=== PATIENT | female | born 1985 | race African-American/Black ===

== ENCOUNTER 2017-11-20 19:21 | Emergency (ER) | payer MEDICAID, OTHER ==
[2017-11-20] MEDS ORDERED: ACETAMINOPHEN 325 MG TABLET PO ONE (20:08)
--- NOTE | 2017-11-20 20:12 | ER Document Report ---
HPI - HPI Pain Level: 4 Notes: Patient is a 32-year-old female who presents to the ED complaining of nasal congestion/discharge, dry nonproductive cough, fever, body ache 2-3 days. Patient states that she is still eating and drinking without difficulties, but does have a decreased p.o. intake. She is still urinating normally having normal bowel movements. Patient has been using some qgtp-[id number] meds for symptoms. She denies any significant past medical history including cardiopulmonary history and immunocompromised conditions. Patient denies any smoking or IV drug use. Patient requesting work note. Denies or sickle cell. Denies any current headache, neck pain, chest pain, palpitations, syncope, shortness of breath, wheeze, dyspnea, abdominal pain, nausea/vomiting/ diarrhea, urinary retention, dysuria, hematuria, or rash. - ROS Systems Reviewed and Negative: Yes All other systems reviewed and negative - REPRODUCTIVE LMP: 10-30-17 Reproductive: DENIES: : Past Medical History - Social History Smoking Status: Never Smoker Family History: Reviewed & Not Pertinent - Past Medical History Cardiac Medical History: Denies: Hx Coronary Artery Disease, Hx Heart Attack, Hx Hypertension Pulmonary Medical History: Denies: Hx Asthma, Hx Bronchitis, Hx COPD, Hx Pneumonia Neurological Medical History: Denies: Hx Cerebrovascular Accident, Hx Seizures Musculoskeltal Medical History: Denies Hx Arthritis Past Surgical History: Denies: Hx Pacemaker - Immunizations Hx Diphtheria, Pertussis, Tetanus Vaccination: Yes - 2009 Vertical Provider Document - CONSTITUTIONAL Agree With Documented VS: Yes Notes: PHYSICAL EXAMINATION: GENERAL: Well-appearing, well-nourished and in no acute distress. A&Ox4. Answers questions appropriately. Moves comfortably w/o notable distress HEAD: Atraumatic, normocephalic. EYES: Pupils equal round and reactive to light, extraocular movements intact, sclera anicteric, conjunctiva are normal. ENT: EAC clear b/l. TM's intact b/l without erythema, fluid, or perforation. Nares patent and with clear discharge. oropharynx no erythema without exudates. No tonsilar hypertrophy without erythema or exudate. No palatine shift. Uvula midline. No tongue protrusion. No drooling, hoarseness, or airway compromise. Moist mucous membranes. No sinus tenderness. NECK: Normal range of motion, supple without lymphadenopathy. No rigidity/ meningismus. LUNGS: Breath sounds clear to auscultation bilaterally and equal. No wheezes rales or rhonchi. No retractions HEART: Regular rate and rhythm without murmurs, rubs, gallops. ABDOMEN: Soft, nontender, nondistended abdomen. No guarding, no rebound. No masses appreciated. Normal bowel sounds present. No CVA tenderness bilaterally. No hepatosplenomegaly. NEUROLOGICAL: Normal speech, normal gait. Normal sensory, motor exams PSYCH: Normal mood, normal affect. SKIN: Warm, Dry, normal turgor, no rashes or lesions noted. - INFECTION CONTROL TRAVEL OUTSIDE OF THE [place] IN LAST 30 DAYS: No Course - Re-evaluation Re-evalutation: 11/20/17 21:30 Patient is a well-hydrated, 32-year-old female who presents to the ED with acute URI, suspect influenza. Vitals are stable (temp improved to 100.6). PE is otherwise unremarkable. No labs or imaging warranted at this time based on H &P. Patient has no significant cardiopulmonary or immunocompromised medical conditions. Patient's lungs are clear to auscultation bilaterally without tachycardia, hypoxia, or tachypnea. Patient is tolerating p.o. without any difficulties. Tylenol and toradol given today. Thoroughly reviewed the risks, benefits, potential side effects, estimated cost without insurance with patient. After thorough review, patient declined Tamiflu at this time. Low suspicion for any meningitis, sepsis, peritonsillar/pharyngeal abscess, respiratory compromise, severe dehydration, or other emergent systemic condition at this time. Patient is aware this condition can change from initial presentation and she needs to monitor symptoms closely. Conservative measures otherwise for symptoms. Recheck with your PCM in 3-5 days. Return to the ED with any worsening/concerning symptoms otherwise as reviewed in discharge. Patient is in agreement. Discharge - Discharge Clinical Impression: Acute URI, Influenza Condition: Stable Disposition: HOME, SELF-CARE Instructions: Influenza ([facility]), Upper Respiratory Illness ([facility]) Additional Instructions: Maintain adequate fluid intake Take meds as directed tylenol/ibuprofen as needed over the counter cold medication as needed for symptoms Humidified air may help Wash your hands regularly Wear a mask when coughing F/u: with your PCM in 3-5 days for a recheck Return to the ED with any fever, worsening pain, chest pain, palpitations, syncope, worsening LIU, neck pain/stiffness, shortness of breath, wheezing, drooling, trouble swallowing/breathing, abdominal pain, n/v/d, rash, or worsening/concerning symptoms otherwise. Forms: Return to Work Referrals: [facility] [Provider Group] - Follow up as needed [facility] [Provider Group] - Follow up as needed
[2017-11-20] MEDS ORDERED: KETOROLAC TROMETHAMINE INJ/PF 30 MG/1 ML SDV IM ONE (20:47)
[2017-11-20 22:12] VITALS: BP 109/75
== END 2017-11-20 22:10 | disposition home or self-care (01) ==
LOC: ER 19:21
DX: J11.1 Influenza due to unidentified influenza virus with other respiratory manifestations (principal); R09.81 Nasal congestion; R09.89 Other specified symptoms and signs involving the circulatory and respiratory systems; R05 Cough; R50.9 Fever, unspecified; M79.1 Myalgia
CPT/HCPCS: 99283; 96372; J1885

== ENCOUNTER 2019-11-02 13:33 | Emergency (ER) | payer MEDICAID, OTHER ==
[2019-11-02] MEDS ORDERED: METOCLOPRAMIDE HCL INJ/PF 10 MG/2 ML SDV IV ONE (13:53)
[2019-11-02] MEDS ORDERED: DIPHENHYDRAMINE HCL 50 MG/ML VIAL IV ONE (13:53)
[2019-11-02] MEDS ORDERED: RINGERS SOLUTION,LACTATED 1,000 ML IV ONE (13:53)
--- NOTE | 2019-11-02 13:55 | ER Document Report ---
ED Medical Screen (RME) - General Chief Complaint: Chest Pain Stated Complaint: CHEST PAIN Time Seen by Provider: 11/02/19 13:50 Mode of Arrival: Wheelchair Information source: Patient Notes: Patient presents with fever cough and weakness. Patient reports nausea and vomiting as well. Patient states she has had a cough for 3 days. Patient reports fever of 102 earlier today. Patient did take Tylenol around 1230 today. Patient complains of chest pain and upper back pain between her shoulder blades. Patient is currently 32 weeks G2, P1. I have greeted and performed a rapid initial assessment of this patient. A comprehensive ED assessment and evaluation of the patient, analysis of test results and completion of the medical decision making process will be conducted by additional ED providers. TRAVEL OUTSIDE OF THE [place] IN LAST 30 DAYS: No - Related Data Allergies/Adverse Reactions: Penicillins Adverse Reaction (Verified 11/02/19 13:49) Past Medical History - Past Medical History Cardiac Medical History: Denies: Hx Coronary Artery Disease, Hx Heart Attack, Hx Hypertension Pulmonary Medical History: Denies: Hx Asthma, Hx Bronchitis, Hx COPD, Hx Pneumonia Neurological Medical History: Denies: Hx Cerebrovascular Accident, Hx Seizures Renal/ Medical History: Denies: Hx Peritoneal Dialysis Musculoskeltal Medical History: Denies Hx Arthritis Past Surgical History: Denies: Hx Pacemaker - Immunizations Hx Diphtheria, Pertussis, Tetanus Vaccination: Yes - 2009 Physical Exam - Respiratory Respiratory status: Tachypnea - Cardiovascular Rhythm: Tachycardia Heart sounds: S1 appreciated, S2 appreciated
[2019-11-02 15:14] LABS: VENOUS BLOOD BASE EXCESS -4.8 mmol/L; VENOUS BLOOD HCO3 19.8 mmol/L (20-32); VENOUS BLOOD PCO2 34.8 mmHg (35-63); VENOUS BLOOD PH 7.37 (7.30-7.42)
[2019-11-02 15:20] LABS: HEMATOCRIT 28.8 % (36.0-47.0); HEMOGLOBIN 9.6 g/dL (12.0-15.5); MEAN CORPUSCULAR HEMOGLOBIN 24.1 pg (27.0-33.4); MEAN CORPUSCULAR HGB CONC 33.3 g/dL (32.0-36.0); MEAN CORPUSCULAR VOLUME 72 fl (80-97); PLATELET COUNT 130 10^3/uL (150-450); RED BLOOD COUNT 3.98 10^6/uL (3.72-5.28); RED CELL DISTRIBUTION WIDTH 17.4 % (11.5-14.0); WHITE BLOOD COUNT 9.3 10^3/uL (4.0-10.5)
--- NOTE | 2019-11-02 15:30 | RADIOLOGY REPORT (SQ) ---
EXAM DESCRIPTION: CHEST 2 VIEWS COMPLETED DATE/TIME: 11/02/2019 3:22 pm REASON FOR STUDY: cp, sob COMPARISON: None. EXAM PARAMETERS: NUMBER OF VIEWS: Two views. TECHNIQUE: PA and lateral views of the chest were obtained.. RADIATION DOSE: NA LIMITATIONS: none FINDINGS: LUNGS AND PLEURA: Asymmetric right lower lobe opacity. There is no pleural effusion or pn eumothorax. MEDIASTINUM AND HILAR STRUCTURES: No mediastinal or hilar contour abnormality. HEART AND VASCULAR STRUCTURES: The cardiac silhouette and pulmonary vasculature are within normal dumont its. BONES: No acute findings. HARDWARE: None in the chest. OTHER: No other finding. IMPRESSION: Right lower lobe pneumonia. TECHNICAL DOCUMENTATION: JOB ID: [id number] 2010 [employer]- All Rights Reserved Reading location - IP/workstation name: [email or web address]
[2019-11-02 15:34] LABS: A TYPE INFLUENZA AG NEGATIVE (NEGATIVE); B INFLUENZA AG NEGATIVE (NEGATIVE)
[2019-11-02 15:40] LABS: ALBUMIN 3.4 g/dL (3.5-5.0); ALKALINE PHOSPHATASE 78 U/L (38-126); ANION GAP 9 (5-19); ASPARTATE AMINO TRANSFERASE 30 U/L (14-36); BILIRUBIN,DIRECT 0.1 mg/dL (0.0-0.4); BILIRUBIN,TOTAL 0.6 mg/dL (0.2-1.3); BLOOD UREA NITROGEN 5 mg/dL (7-20); CALCIUM 8.8 mg/dL (8.4-10.2); CARBON DIOXIDE 20 mmol/L (22-30); CHLORIDE 102 mmol/L (98-107); GLUCOSE 91 mg/dL (75-110); POTASSIUM 3.6 mmol/L (3.6-5.0); TOTAL PROTEIN 6.8 g/dL (6.3-8.2)
[2019-11-02 15:56] LABS: ABSOLUTE LYMPHOCYTES# (MANUAL) 0.6 10^3/uL (0.5-4.7); ABSOLUTE MONOCYTES # (MANUAL) 0.5 10^3/uL (0.1-1.4); BAND NEUTROPHILS % (MANUAL) 2 % (3-5); BASOPHILS % (MANUAL) 0 % (0-2); EOSINOPHILS % (MANUAL) 1 % (0-6); LYMPHOCYTES % (MANUAL) 6 % (13-45); MONOCYTES % (MANUAL) 5 % (3-13); SEGMENTED NEUTROPHILS % (MAN) 86 % (42-78); TOTAL CELLS COUNTED 100
[2019-11-02] MEDS ORDERED: AZITHROMYCIN 250 MG TABLET PO ONE (15:56)
[2019-11-02 15:59] LABS: ANISOCYTOSIS 1+; PLATELET COMMENT DECREASED; PLATELET LARGE PRESENT; POLYCHROMASIA SLIGHT
[2019-11-02] MEDS ORDERED: NORMAL SALINE 1000 ML 1,000 ML IV ONE (16:18)
[2019-11-02] MEDS ORDERED: ACETAMINOPHEN 325 MG TABLET PO ONE (17:42)
--- NOTE | 2019-11-02 17:44 | ER Document Report ---
ED Cardiac - General Chief Complaint: Fever Stated Complaint: CHEST PAIN Time Seen by Provider: 11/02/19 13:50 Mode of Arrival: Wheelchair Information source: Patient TRAVEL OUTSIDE OF THE [place] IN LAST 30 DAYS: No - HPI Notes: Patient presents with cough congestion fever and chest pain. Patient also states she is had vomiting with her coughing. The cough is been productive of yellow-green sputum. She states she is currently 32 weeks . No s ignificant zenia pain. No leaking of fluid or bleeding. She has had no problems with this . She has no significant past medical history. The chest pain is a tightness sensation in the center of the chest. It is constant. It is worse with exertion or deep breath and better with rest. It does radiate across her chest. It is moderate to severe. - Related Data Allergies/Adverse Reactions: Penicillins Adverse Reaction (Verified 11/02/19 13:49) Past Medical History - General Information source: Patient - Social History Smoking Status: Never Smoker Chew tobacco use (# tins/day): No Frequency of alcohol use: None Drug Abuse: None Family History: Reviewed & Not Pertinent Patient has suicidal ideation: No Patient has homicidal ideation: No - Past Medical History Cardiac Medical History: Denies: Hx Coronary Artery Disease, Hx Heart Attack, Hx Hypertension Pulmonary Medical History: Denies: Hx Asthma, Hx Bronchitis, Hx COPD, Hx Pneumonia Neurological Medical History: Denies: Hx Cerebrovascular Accident, Hx Seizures Renal/ Medical History: Denies: Hx Peritoneal Dialysis Musculoskeletal Medical History: Denies Hx Arthritis Past Surgical History: Denies: Hx Pacemaker - Immunizations Hx Diphtheria, Pertussis, Tetanus Vaccination: Yes - 2009 Review of Systems - Review of Systems Constitutional: Chills, Fever, Malaise, Recent illness Cardiovascular: Chest pain, Palpitations Respiratory: Cough, Short of breath -: Yes All other systems reviewed and negative Physical Exam - Vital signs Vitals: Temp Pulse Resp BP Pulse Ox 100.7 F H 135 H 16 112/99 H 97 11/02/19 13:48 11/02/19 13:48 11/02/19 13:48 11/02/19 13:48 11/02/19 13:48 Interpretation: Tachycardic, Tachypneic, Febrile - General General appearance: Alert In distress: Mild - HEENT Head: Normocephalic, Atraumatic Eyes: Normal Pupils: PERRL - Respiratory Respiratory status: Respiratory distress - Mild, Tachypnea Chest status: Nontender Breath sounds: Normal Chest palpation: Normal - Cardiovascular Rhythm: Tachycardia Heart sounds: Normal auscultation Murmur: No - Abdominal Inspection: Gravid female Distension: No distension Bowel sounds: Normal Tenderness: Nontender - Back Back: Normal, Nontender - Extremities General upper extremity: Normal inspection, Nontender, Normal color, Normal ROM, Normal temperature General lower extremity: Normal inspection, Nontender, Normal color, Normal ROM, Normal temperature, Normal weight bearing. No: Guanaco's sign - Neurological Neuro grossly intact: Yes Cognition: Normal Orientation: AAOx4 [place] Coma Scale Eye Opening: Spontaneous Medicine [place] Coma Scale Verbal: Oriented Medicine [place] Coma Scale Motor: Obeys Commands [place] Coma Scale Total: 15 Speech: Normal Motor strength normal: LUE, RUE, LLE, RLE Sensory: Normal - Psychological Associated symptoms: Normal affect, Normal mood - Skin Skin Temperature: Warm Skin Moisture: Dry Skin Color: Normal Course - Re-evaluation Re-evalutation: 11/02/19 17:42 Patient presents with fever and a right lower lobe pneumonia on chest x-ray. She is tachycardic and mildly tachypneic. She has not been hypoxic. Lactate at this time is normal. She is not significantly acidotic. She does not have a significant elevated white blood cell count. I have treated her with fluids and antibiotics. She has had a stress testing done by OB which they tell me other than some tachycardia appears okay. Patient will be transferred to maternal medicine service at [facility]. At this time patient is stable. She is still maintaining her saturations. She is mildly tachypneic. Her heart rate is not significantly change despite the fluids. She will continue to be closely monitored until transfer. - Vital Signs Vital signs: Temp Pulse Resp BP Pulse Ox 100.7 F H 135 H 16 112/99 H 100 11/02/19 13:48 11/02/19 13:48 11/02/19 13:48 11/02/19 13:48 11/02/19 16:00 - Laboratory Result Diagrams: 11/02/19 14:55 11/02/19 14:55 Laboratory results interpreted by me: 11/02/19 11/02/19 11/02/19 14:55 14:55 14:55 Hgb 9.6 L Hct 28.8 L MCV 72 L MCH 24.1 L RDW 17.4 H Plt Count 130 L Seg Neuts % (Manual) 86 H Band Neutrophils % 2 L Lymphocytes % (Manual) 6 L VBG pCO2 34.8 L VBG HCO3 19.8 L Sodium 131.2 L Carbon Dioxide 20 L BUN 5 L Albumin 3.4 L - Diagnostic Test Radiology reviewed: Image reviewed, Reports reviewed - EKG Interpretation by Me EKG shows normal: Sinus rhythm Rate: Tachycardia - 139 Rhythm: NSR [place]/QRS: No: Right axis deviation, Left axis deviation Critical Care Note - Critical Care Note Total time excluding time spent on procedures (mins): 50 Comments: Approximate 50 minutes were spent managing this patient febrile pneumonia in a female. This included multiple reassessments. And included multiple discussions with family and consultants. It included reviewing imaging and laboratory. Discharge - Discharge Clinical Impression: Pneumonia Qualifiers: Pneumonia type: due to unspecified organism Laterality: right Lung location: lower lobe of lung Qualified Code(s): J18.9 - Pneumonia, unspecified organism Condition: Fair Disposition: [facility]
[2019-11-02 18:11] LABS: APPEARANCE,URINE SLIGHTLY-CLOUDY; BILIRUBIN,URINE NEGATIVE (NEGATIVE); COLOR,URINE YELLOW; GLUCOSE, URINE NEGATIVE (NEGATIVE); KETONES,URINE NEGATIVE (NEGATIVE); LEUKOCYTE ESTERASE,URINE NEGATIVE (NEGATIVE); NITRITE,URINE NEGATIVE (NEGATIVE); PROTEIN,URINE NEGATIVE (NEGATIVE); URINE SPECIFIC GRAVITY 1.006; UROBILINOGEN,URINE NEGATIVE mg/dL (<2.0)
[2019-11-02 19:27] VITALS: BP 107/57
--- NOTE | 2019-11-02 20:15 | ER Document Report ---
Doctor's Note Notes: 11/02/19 20:14 At approximate 7:55 PM I reassessed the patient. Her blood pressure was 90 for the nurse. We turned the patient onto her left side and repeated the blood pressure and it was 95 systolic. Her heart rate was 130. Her heart rate essentially was no different than when she arrived her blood pressure had dropp ed about 10 points despite 3 L of fluid. She stated she did not feel significantly different than when she arrived. Since she was not feeling worse in her pulse was not increasing I felt that the most prudent thing to do was to continue with the transfer as this was a patient that was obviously too ill to be taking care of here. I do not feel that I had significant interventions to offer her. She did not require pressors at this time. She was in no respiratory distress. It seem to me the most prudent thing was to try to get her to a tertiary center as quickly as possible and I felt that further treatment here was only going to delay the definitive care that would be the best for her.
--- NOTE | 2019-11-02 20:28 | EKG REPORT ---
SEVERITY:- OTHERWISE NORMAL ECG - SINUS TACHYCARDIA NONSPECIFIC ST-T CHANGES- DIFFUSE LEADS : Confirmed by: Randy Castro MD 02-Nov-2019 20:27:37
== END 2019-11-02 20:04 | disposition short-term general hospital (02) ==
LOC: ER 13:33
DX: O26.93 Pregnancy related conditions, unspecified, third trimester (principal); J18.9 Pneumonia, unspecified organism; R50.9 Fever, unspecified; R07.9 Chest pain, unspecified; R11.2 Nausea with vomiting, unspecified; R53.1 Weakness; Z3A.32 32 weeks gestation of pregnancy; Z88.0 Allergy status to penicillin
CPT/HCPCS: 93005; 99291; 96361; 96374; 96375; 59025; 36415; 87040; 83605; 83690; 85025; 80053; 81001; 82803; 87804; 71046; 93010; J1200; J2765; J7030; J7120

== ENCOUNTER 2020-01-06 03:41 | Inpatient (IN) | payer OTHER ==
[2020-01-06 04:14] LABS: APPEARANCE,URINE SLIGHTLY-CLOUDY; BILIRUBIN,URINE NEGATIVE (NEGATIVE); COLOR,URINE YELLOW; GLUCOSE, URINE NEGATIVE (NEGATIVE); KETONES,URINE NEGATIVE (NEGATIVE); LEUKOCYTE ESTERASE,URINE NEGATIVE (NEGATIVE); NITRITE,URINE NEGATIVE (NEGATIVE); PROTEIN,URINE NEGATIVE (NEGATIVE); URINE SPECIFIC GRAVITY 1.028; UROBILINOGEN,URINE NEGATIVE mg/dL (<2.0)
[2020-01-06] MEDS ORDERED: RINGERS SOLUTION,LACTATED 1,000 ML IV ONE (04:16)
[2020-01-06] MEDS ORDERED: RINGERS SOLUTION,LACTATED 1,000 ML IV PRN (04:16)
[2020-01-06] MEDS ORDERED: OXYTOCIN 10 UNIT/ML VIAL ONE (04:17)
[2020-01-06] MEDS ORDERED: MISOPROSTOL 0.2 MG TABLET ONE (04:17)
[2020-01-06] MEDS ORDERED: OXYTOCIN/NORMAL SALINE 20 UNIT/1,000 ML RTUINJ ONE (04:18)
[2020-01-06] MEDS ORDERED: LIDOCAINE 1% INJ-PF (10 MG/ML) 30 ML SDV ONE (04:18)
[2020-01-06] MEDS ORDERED: VANCOMYCIN HCL INJ 1000 MG VIAL ONE (04:25)
[2020-01-06] MEDS ORDERED: VANCOMYCIN HCL INJ 1000 MG VIAL IV PRN (04:33)
[2020-01-06 04:40] LABS: URINE AMPHETAMINES SCREEN NEGATIVE; URINE BARBITURATES SCREEN NEGATIVE; URINE BENZODIAZEPINES SCREEN NEGATIVE; URINE COCAINE SCREEN NEGATIVE; URINE MARIJUANA (THC) SCREEN NEGATIVE; URINE METHADONE SCREEN NEGATIVE; URINE PHENCYCLIDINE SCREEN NEGATIVE
--- NOTE | 2020-01-06 04:42 | Admission Physical ---
Datetime Report Generated by CPN: 01/06/2020 04:42 CURRENT ADMISSION Chief Complaint: Uterine Contractions Indication for Induction: Not Applicable Admit Impression : Term, Intrauterine Admit Plan: Admit to Unit; Initiate Labor Protocol ALLERGIES Medication Allergies: Penicillins (01/06/2020) Latex: No Latex Allergies OBSTETRICAL HISTORY EDC: 01/06/2020 00:00 : 3 Para: 1 SEE RECORDS Alcohol: No Marijuana : No Cocaine: No Other Illicit Drugs: No Cigarettes: Never Smoker. [id number] PHYSICAL EXAM General: Normal HEENT: Normal Neurologic: Normal Thyroid: Normal Heart: Normal Lungs: Normal Breast: Deferred Back: Normal Abdomen: Normal Genitourinary Exam: Normal Extremities: Normal DTRs: Normal Pelvic Type: Adequate FETUS A EGA: 40.0 PLANS FOR LABOR AND DELIVERY Labor and Delivery: Plan Pain Management: Epidural Feeding Preference: Breast Circumcision: Yes INFORMED CONSENT Signature: with User ID: [email or web address]
[2020-01-06 04:45] LABS: HEMATOCRIT 35.4 % (36.0-47.0); HEMOGLOBIN 11.8 g/dL (12.0-15.5); MEAN CORPUSCULAR HEMOGLOBIN 24.6 pg (27.0-33.4); MEAN CORPUSCULAR HGB CONC 33.4 g/dL (32.0-36.0); MEAN CORPUSCULAR VOLUME 74 fl (80-97); PLATELET COUNT 118 10^3/uL (150-450); RED BLOOD COUNT 4.79 10^6/uL (3.72-5.28); RED CELL DISTRIBUTION WIDTH 24.6 % (11.5-14.0)
[2020-01-06] MEDS ORDERED: VANCOMYCIN HCL 1,000 MG in DEXTROSE 5%-WATER 250 ML IV ONE (04:45)
[2020-01-06 05:19] LABS: ABSOLUTE LYMPHOCYTES# (MANUAL) 1.8 10^3/uL (0.5-4.7); ABSOLUTE MONOCYTES # (MANUAL) 0.8 10^3/uL (0.1-1.4); BASOPHILS % (MANUAL) 0 % (0-2); EOSINOPHILS % (MANUAL) 1 % (0-6); LYMPHOCYTES % (MANUAL) 16 % (13-45); MONOCYTES % (MANUAL) 7 % (3-13); SEGMENTED NEUTROPHILS % (MAN) 76 % (42-78); TOTAL CELLS COUNTED 100
[2020-01-06 05:20] LABS: HYPOCHROMASIA SLIGHT; POLYCHROMASIA SLIGHT; TOXIC GRANULATION SLIGHT
[2020-01-06 05:21] LABS: ANISOCYTOSIS 3+; OVALOCYTES SLIGHT; PLATELET COMMENT DECREASED; POIKILOCYTOSIS SLIGHT; TEAR DROP CELLS SLIGHT
[2020-01-06] MEDS ORDERED: IBUPROFEN 800 MG TABLET ONE (06:20)
--- NOTE | 2020-01-06 06:20 | Delivery Summary ---
Del Sum A-C Datetime Report Generated by CPN: 01/06/2020 06:20 DELIVERY PERSONNEL DELIVERY PERSONNEL: [id number] Delivery Doctor:: Sunday Edwards, MD Labor and Delivery Nurse:: Gloria Aleman, RN Flat Cutter/VETERINARY SURGERY TECHNICIAN: Rajnigailndo Mirza, ST Flat Cutter/VETERINARY SURGERY TECHNICIAN: Dee Jorge Alberto, HUMAN DEVELOPMENT PROFESSOR MATERNAL INFORMATION Delivery Anesthesia: None Medications After Delivery: Pitocin Drip 20 Units/1000ml NSS Delivery QBL: 100 Maternal Complications: None LABOR SUMMARY EDC: 01/06/2020 00:00 No. Babies in Womb: 1 Attempted: No Labor Anesthesia: None LABOR INFORMATION Reason for Induction: Not Applicable Onset of Labor: 01/06/2020 04:14 Complete Dilatation: 01/06/2020 04:55 Oxytocin: N/A Group B Beta Strep: Positive Antibiotics # of Doses: 0 Name of Antibiotic Given: vancomycin - incomplete Steroids Given: None Reason Steroids Not Administered: Not Applicable Other Reason Not Administered: n/a MEMBRANES Membranes Rupture Method: Spontaneous Rupture of Membranes: 01/06/2020 04:55 Length of Rupture (hr): 0.12 Amniotic Fluid Color: Light Meconium Amniotic Fluid Amount: Small STAGES OF LABOR Stage 1 hr: 0 Stage 1 min: 41 Stage 2 hr: 0 Stage 2 min: 7 Stage 3 hr: 0 Stage 3 min: 3 Total Time in Labor hr: 0 Total Time in Labor min: 51 VAGINAL DELIVERY Episiotomy: None Laceration #1: None Laceration Extension #1: N/A Sponge Count Correct: Yes Sharps Count Correct: Yes CSECTION DELIVERY Primary Indication: N/A CSection Incidence: N/A Labor: N/A Elective: N/A CSection Incision: N/A BABY A INFORMATION Infant Delivery Date/Time: 01/06/2020 05:02 Method of Delivery: Vaginal Nurse Controlled Delivery: No Born in Route : No : N/A Forceps: N/A Vacuum Extraction: N/A Shoulder Dystocia : No PRESENTATION/POSITION BABY A Presentation: Cephalic Cephalic Presentation: Vertex Vertex Position: Left Occipital Anterior Breech Presentation: N/A PLACENTA INFORMATION BABY A Placenta Delivery Time : 01/06/2020 05:05 Placenta Method of Delivery: Spontaneous Placenta Status: Delivered INFORMATION BABY A Gestational Age at Delivery: 40.0 Gestational Status: Full Term- 39- 40.6 Weeks Outcome : Liveborn Condition : Stable Sex: Male IDENTIFICATION BABY A Verification Date/Time: 01/06/2020 05:36 ID Band Number: [id number] Mother's Name Verified: Yes RN Verifying : SHortensia Aleman,RN Additional Verifying Personnel: Lionel Mckeon, RN WEIGHT/LENGTH BABY A Birthweight (gm): 3717 Infant Weight (lb): 8 Infant Weight (oz): 3 Infant Length (in): 21.50 Infant Length (cm): 54.61 CORD INFORMATION BABY A No. Cord Vessels: 3 Nuchal Cord : N/A Cord Blood Taken: Yes-For Storage (Mom's Blood type +) ASSESSMENT BABY A Complications: None Physical Findings at Delivery: Within Normal Limits Skin to Skin: Yes Transferred To: Remains with Mother SIGNATURES Signature: with User ID: [email or web address]
[2020-01-06] MEDS ORDERED: NA PHOS,M-B/NA PHOS,DI-BA (ADULT) 133 ML ENEMA PR PRN (10:55)
[2020-01-06] MEDS ORDERED: BENZOCAINE/MENTHOL AEROSOL SPRAY 56 ML TOP PRN (10:55)
[2020-01-06] MEDS ORDERED: PROMETHAZINE HCL 25 MG SUPP.RECT PR PRN (10:55)
[2020-01-06] MEDS ORDERED: PROMETHAZINE HCL INJ 25 MG/1 ML VIAL IV PRN (10:55)
[2020-01-06] MEDS ORDERED: PSEUDOEPHEDRINE HCL 30 MG TABLET PO PRN (10:55)
[2020-01-06] MEDS ORDERED: ACETAMINOPHEN 325 MG TABLET PO PRN (10:55)
[2020-01-06] MEDS ORDERED: DIPH/PERTUSS(ACELL)/TETANUS VAC/PF 0.5 ML SYR (>=10YO) IM PRN (10:55)
[2020-01-06] MEDS ORDERED: DIBUCAINE 1% OINTMENT 28 GM TP PRN (10:55)
[2020-01-06] MEDS ORDERED: OXYTOCIN/NORMAL SALINE 20 UNIT/1,000 ML RTUINJ IV PRN (10:55)
[2020-01-06] MEDS ORDERED: GLYCERIN/WITCH HAZEL LEAF 1 EACH MED..WIPE TP PRN (10:55)
[2020-01-06] MEDS ORDERED: DIPHENHYDRAMINE HCL 25 MG CAPSULE PO PRN (10:55)
[2020-01-06] MEDS ORDERED: PROMETHAZINE HCL 25 MG TABLET PO PRN (10:55)
[2020-01-06] MEDS ORDERED: MAGNESIUM HYDROXIDE SUSP 30 ML UDCUP PO PRN (10:55)
[2020-01-06] MEDS ORDERED: MEASLES,MUMPS&RUBELLA VACC/PF 0.5 ML VIAL SUBCUT PRN (10:55)
--- NOTE | 2020-01-06 13:01 | PDOC PROGRESS REPORT ---
Subjective-OB Progress Note for:: 01/06/20 Subjective: 34yo G3 now P1 s/p delivery day. Ambulating and voiding without difficulty. Reports pain well tolerated with medication, denies any concerns today Physical Exam (OB) Vital Signs: Temp Pulse Resp BP Pulse Ox 97.9 F 99 18 105/61 99 01/06/20 08:59 01/06/20 08:59 01/06/20 08:59 01/06/20 08:59 01/06/20 08:59 Intake & Output 01/05/20 01/06/20 01/07/20 06:59 06:59 06:59 Weight 98.5 kg - General General Appearance: Appears well In distress: None - Episiotomy/Laceration Site Condition: N/A - Lochia Lochia Amount: Scant < 10 ml Lochia Color: Rubra/Red - Abdomen Description: Soft Hernia Present: No Fundal Description: Firm, Midline Fundal Height: u/u - u/2 - Respiratory Respiratory Status: No respiratory distress - Extremities Upper extremity: Normal inspection Lower extremities: Edema - Neurological Cognition: Normal Orientation: AAOx4 - Psychological Associated symptoms: Normal affect, Normal mood - tired Objective-Diagnostic Laboratory: 01/06/20 04:27 01/06/20 01/06/20 01/06/20 04:00 04:27 04:27 WBC 11.0 H RBC 4.79 Hgb 11.8 L Hct 35.4 L MCV 74 L MCH 24.6 L MCHC 33.4 RDW 24.6 H Plt Count 118 L Seg Neutrophils % Not Reportable Urine Color YELLOW Urine Appearance SLIGHTLY-CLOUDY Urine pH 6.0 Ur Specific [place] 1.028 Urine Protein NEGATIVE Urine Glucose (UA) NEGATIVE Urine Ketones NEGATIVE Urine Blood NEGATIVE Urine Nitrite NEGATIVE Ur Leukocyte Esterase NEGATIVE Blood Type B POSITIVE Antibody Screen NEGATIVE Assessment and Plan(PN) - Assessment and Plan (1) Positive GBS test Is this a current diagnosis for this admission?: Yes Plan: delivered. Pt only had some of the first dose of antibiotics (2) Qualifiers: Weeks of gestation: 40 weeks Qualified Code(s): Z3A.40 - 40 weeks gestation of Is this a current diagnosis for this admission?: Yes Plan: delivered (3) Vaginal delivery Is this a current diagnosis for this admission?: Yes Plan: routine pp care - Time Spent with Patient Time with patient: Less than 15 minutes Medications reviewed and adjusted accordingly: Yes - Disposition Anticipated Discharge: Home Within: within 48 hours
[2020-01-06] MEDS: DOCUSATE SODIUM 100 MG CAPSULE PO SCH (17:37)
[2020-01-06] MEDS: SENNOSIDES/DOCUSATE 8.6-50 MG 1 EACH TABLET PO SCH (17:37)
[2020-01-06] MEDS: FERROUS SULFATE 325 MG TABLET PO SCH (17:37)
[2020-01-06] MEDS: IBUPROFEN 800 MG TABLET PO SCH ×2 (17:38→21:14)
[2020-01-06] MEDS ORDERED: VANCOMYCIN HCL 1,000 MG in DEXTROSE 5%-WATER 250 ML IV SCH (18:00)
[2020-01-06] MEDS: FAMOTIDINE 20 MG TABLET PO SCH (22:00)
[2020-01-07] MEDS: IBUPROFEN 800 MG TABLET PO SCH ×2 (05:34→13:32)
[2020-01-07 07:29] LABS: HEMOGLOBIN 10.3 g/dL (12.0-15.5); MEAN CORPUSCULAR HEMOGLOBIN 25.2 pg (27.0-33.4); MEAN CORPUSCULAR HGB CONC 34.2 g/dL (32.0-36.0); MEAN CORPUSCULAR VOLUME 74 fl (80-97); PLATELET COUNT 116 10^3/uL (150-450); RED BLOOD COUNT 4.07 10^6/uL (3.72-5.28); RED CELL DISTRIBUTION WIDTH 24.2 % (11.5-14.0); WHITE BLOOD COUNT 10.3 10^3/uL (4.0-10.5)
--- NOTE | 2020-01-07 10:14 | PDOC PROGRESS REPORT ---
Subjective-OB Progress Note for:: 01/07/20 Subjective: Pt doing well, no concerns. She reports light bleeding reg diet and voiding without difficulty. Physical Exam (OB) Vital Signs: Temp Pulse Resp BP Pulse Ox 97.9 F 90 16 109/57 L 100 01/07/20 07:40 01/07/20 07:40 01/07/20 07:40 01/07/20 07:40 01/07/20 07:40 Intake & Output 01/06/20 01/07/20 01/08/20 06:59 06:59 06:59 Weight 98.5 kg - Lochia Lochia Amount: Small 10-25 ml Lochia Color: Rubra/Red - Abdomen Description: Soft Hernia Present: No Fundal Description: Firm Fundal Height: u/u - u/2 Objective-Diagnostic Laboratory: 01/07/20 06:41 01/07/20 06:41 WBC 10.3 RBC 4.07 Hgb 10.3 L Hct 30.0 L MCV 74 L MCH 25.2 L MCHC 34.2 RDW 24.2 H Plt Count 116 L Assessment and Plan(PN) - Assessment and Plan (1) Positive GBS test Is this a current diagnosis for this admission?: Yes (2) Vaginal delivery Is this a current diagnosis for this admission?: Yes - Time Spent with Patient Time with patient: Less than 15 minutes Medications reviewed and adjusted accordingly: Yes - Disposition Anticipated Discharge: Home Within: within 24 hours
[2020-01-07] MEDS: FAMOTIDINE 20 MG TABLET PO SCH (10:23)
[2020-01-07] MEDS: SENNOSIDES/DOCUSATE 8.6-50 MG 1 EACH TABLET PO SCH (10:23)
[2020-01-07] MEDS: PRENATAL VITAMIN W DHA CAPSULE PO SCH (10:23)
[2020-01-07] MEDS: DOCUSATE SODIUM 100 MG CAPSULE PO SCH ×2 (10:23→17:59)
[2020-01-07] MEDS: FERROUS SULFATE 325 MG TABLET PO SCH ×2 (10:23→17:59)
[2020-01-08] MEDS: IBUPROFEN 800 MG TABLET PO SCH ×2 (00:31→05:09)
[2020-01-08] MEDS: FAMOTIDINE 20 MG TABLET PO SCH ×2 (00:31→09:23)
[2020-01-08 08:11] VITALS: BP 109/74
[2020-01-08] MEDS: PRENATAL VITAMIN W DHA CAPSULE PO SCH (09:22)
[2020-01-08] MEDS: SENNOSIDES/DOCUSATE 8.6-50 MG 1 EACH TABLET PO SCH (09:22)
[2020-01-08] MEDS: FERROUS SULFATE 325 MG TABLET PO SCH (09:22)
[2020-01-08] MEDS: DOCUSATE SODIUM 100 MG CAPSULE PO SCH (09:22)
--- NOTE | 2020-01-08 09:38 | PDOC DISCHARGE SUMMARY ---
Impression - Admit/DC Date/PCP Admission Date/Primary Care Provider: 01/06/20 04:19 Discharge Date: 01/08/20 - Discharge Diagnosis (1) Positive GBS test Is this a current diagnosis for this admission?: Yes (2) Vaginal delivery Is this a current diagnosis for this admission?: Yes (3) Active labor at term Is this a current diagnosis for this admission?: Yes - Additional Information Resuscitation Status: Full Code Discharge Diet: Regular Discharge Activity: Balance Activity w/Rest, Pelvic Rest, No tub bath Prescriptions: Ibuprofen [Motrin 800 mg Tablet] 800 mg PO Q8HP PRN #60 tablet PRN Reason: For Pain Scale 1-3 Home Medications: Prenat 115/Iron Fum/Folic/Dss [ 19 Tablet] 1 tab PO DAILY 01/06/20 Ibuprofen [Motrin 800 mg Tablet] 800 mg PO Q8HP PRN #60 tablet 01/08/20 HPI Gestational Age: 40.0 Reason(s) for Admission: Onset of Labor Intrapartum Procedure(s): Spontaneous Vaginal Delivery Results Laboratory Results: WBC 10.3 10^3/uL (4.0-10.5) 01/07/20 06:41 RBC 4.07 10^6/uL (3.72-5.28) 01/07/20 06:41 Hgb 10.3 g/dL (12.0-15.5) L 01/07/20 06:41 Hct 30.0 % (36.0-47.0) L 01/07/20 06:41 MCV 74 fl (80-97) L 01/07/20 06:41 MCH 25.2 pg (27.0-33.4) L 01/07/20 06:41 MCHC 34.2 g/dL (32.0-36.0) 01/07/20 06:41 RDW 24.2 % (11.5-14.0) H 01/07/20 06:41 Plt Count 116 10^3/uL (150-450) L 01/07/20 06:41 Lymph % (Auto) Not Reportable 01/06/20 04:27 [place] % (Auto) Not Reportable 01/06/20 04:27 Eos % (Auto) Not Reportable 01/06/20 04:27 Baso % (Auto) Not Reportable 01/06/20 04:27 Absolute Neuts (auto) Not Reportable 01/06/20 04:27 Absolute Lymphs (auto) Not Reportable 01/06/20 04:27 Absolute Monos (auto) Not Reportable 01/06/20 04:27 Absolute Eos (auto) Not Reportable 01/06/20 04:27 Absolute Basos (auto) Not Reportable 01/06/20 04:27 Total Counted 100 01/06/20 04:27 Seg Neutrophils % Not Reportable 01/06/20 04:27 Seg Neuts % (Manual) 76 % (42-78) 01/06/20 04:27 Lymphocytes % (Manual) 16 % (13-45) 01/06/20 04:27 Monocytes % (Manual) 7 % (3-13) 01/06/20 04:27 Eosinophils % (Manual) 1 % (0-6) 01/06/20 04:27 Basophils % (Manual) 0 % (0-2) 01/06/20 04:27 Abs Neuts (Manual) 8.4 10^3/uL (1.7-8.2) H 01/06/20 04:27 Abs Lymphs (Manual) 1.8 10^3/uL (0.5-4.7) 01/06/20 04:27 Abs Monocytes (Manual) 0.8 10^3/uL (0.1-1.4) 01/06/20 04:27 Absolute Eos (Manual) 0.1 10^3/uL (0.0-0.6) 01/06/20 04:27 Abs Basophils (Manual) 0.0 10^3/uL (0.0-0.2) 01/06/20 04:27 Toxic Granulation SLIGHT 01/06/20 04:27 Platelet Comment DECREASED 01/06/20 04:27 Polychromasia SLIGHT 01/06/20 04:27 Hypochromasia SLIGHT 01/06/20 04:27 Poikilocytosis SLIGHT 01/06/20 04:27 Anisocytosis 3+ 01/06/20 04:27 Microcytosis 1+ 01/06/20 04:27 Tear Drop Cells SLIGHT 01/06/20 04:27 Ovalocytes SLIGHT 01/06/20 04:27 Urine Color YELLOW 01/06/20 04:00 Urine Appearance SLIGHTLY-CLOUDY 01/06/20 04:00 Urine pH 6.0 (5.0-9.0) 01/06/20 04:00 Ur Specific [place] 1.028 01/06/20 04:00 Urine Protein NEGATIVE mg/dL (NEGATIVE) 01/06/20 04:00 Urine Glucose (UA) NEGATIVE mg/dL (NEGATIVE) 01/06/20 04:00 Urine Ketones NEGATIVE mg/dL (NEGATIVE) 01/06/20 04:00 Urine Blood NEGATIVE (NEGATIVE) 01/06/20 04:00 Urine Nitrite NEGATIVE (NEGATIVE) 01/06/20 04:00 Urine Bilirubin NEGATIVE (NEGATIVE) 01/06/20 04:00 Urine Urobilinogen NEGATIVE mg/dL (<2.0) 01/06/20 04:00 Ur Leukocyte Esterase NEGATIVE (NEGATIVE) 01/06/20 04:00 Urine Ascorbic Acid NEGATIVE (NEGATIVE) 01/06/20 04:00 Urine Opiates Screen NEGATIVE 01/06/20 04:00 Urine Methadone Screen NEGATIVE 01/06/20 04:00 Ur Barbiturates Screen NEGATIVE 01/06/20 04:00 Ur Phencyclidine Scrn NEGATIVE 01/06/20 04:00 Ur Amphetamines Screen NEGATIVE 01/06/20 04:00 U Benzodiazepines Scrn NEGATIVE 01/06/20 04:00 Urine Cocaine Screen NEGATIVE 01/06/20 04:00 U Marijuana (THC) Screen NEGATIVE 01/06/20 04:00 RPR NONREACTIVE (NONREACTIVE) 01/06/20 04:27 Blood Type B POSITIVE 01/06/20 04:27 Antibody Screen NEGATIVE 01/06/20 04:27 Plan Plan of Treatment: f/u at [facility] 4 wks Time Spent: Less than 30 Minutes
== END 2020-01-08 13:00 | disposition home or self-care (01) | DRG 807 ==
LOC: LC 03:41 → LR 04:19 → 2S 08:57
PROVIDERS: ADMIT Obstetrics & Gynecology Gynecology; ATTEND Obstetrics & Gynecology Gynecology
PROC: 10E0XZZ Delivery of Products of Conception, External Approach (ICD-10-PCS; principal; 2020-01-06)
DX: O99.824 Streptococcus B carrier state complicating childbirth (principal); Z37.0 Single live birth; Z79.899 Other long term (current) drug therapy; Z3A.40 40 weeks gestation of pregnancy; Z88.0 Allergy status to penicillin
CPT/HCPCS: 36415; 80307; 81005; 85025; 85027; 86592; 86850; 86900; 86901; J2590; J3370; J3490; J7060

== ENCOUNTER → 2020-07-25 | Outpatient (CLI) | payer OTHER, MEDICAID ==
--- NOTE | 2020-07-25 15:40 | RADIOLOGY REPORT (SQ) ---
EXAM DESCRIPTION: U/S [id number] TRNABD 1GES W/ODOP IMAGES COMPLETED DATE/TIME: 07/25/2020 3:22 pm REASON FOR STUDY: (Z34.81)ENCOUNTER FOR SUPRVSN OF NORMAL , FIRST TRIMESTER Z34.81 ENCOUNT ER FOR SUPRVSN OF NORMAL , FIRST TRIM COMPARISON: None. TECHNIQUE: Transabdominal static and realtime grayscale images acquired of the pelvis. Additional se lected spectral and color Doppler images recorded. All images stored on PACs. bHCG: Not available. CLINICAL DATES: LMP 05/25/2020 8 weeks 5 days LIMITATIONS: None. FINDINGS: FETUS: Single Living intrauterine . ULTRASOUND EGA: 9 weeks 2 days ULTRASOUND JASPER: 02/25/2021 EFW: Not applicable less than 20 weeks. CRL: 2.6 cm. FHR: 180 beats per minute. SURVEY: Too early to assess. AMNIOTIC FLUID: Adequate amount. PLACENTA: Not yet developed due to early gestation. SUBCHORIONIC BLEED: Yes SIZE OF BLEED: 11 x 8 x 11 mm UTERUS: No masses. No anomalies. CERVICAL LENGTH: 2.4 cm Closed. RIGHT ADNEXA: Normal ovary with normal vascular flow. 2.3 x 1.5 x 1.7 cm. No adnexal free fluid. No adnexal masses. LEFT ADNEXA: Normal ovary with normal vascular flow. 2.3 x 1.9 x 1.6 cm. No adnexal free fluid. No adnexal masses. FREE FLUID: None. OTHER: No other significant finding. IMPRESSION: LIVING INTRAUTERINE . EGA 9 weeks 2 days. Trimester of : First trimester - 0 to 13 weeks. TECHNICAL DOCUMENTATION: JOB ID: [id number] 2010 [employer]- All Rights Reserved rev Reading location - IP/workstation name: [email or web address]
== END ==
LOC: RAD 15:02
PROVIDERS: ATTEND Midwife
DX: Z34.81 Encounter for supervision of other normal pregnancy, first trimester (principal); Z3A.09 9 weeks gestation of pregnancy
CPT/HCPCS: 76801